=== PATIENT | female | born 1995 | race Caucasian/White ===

== ENCOUNTER 2018-12-09 10:28 | Emergency (ER) | payer OTHER ==
[2018-12-09 10:40] VITALS: RESP 18
[2018-12-09] MEDS ORDERED: SODIUM CHLORIDE 0.9% 500 ML 500 ML IV ONE (11:00)
--- NOTE | 2018-12-09 11:02 | ED ---
General Adult HPI - General Chief complaint: Vaginal Bleeding Stated complaint: Vaginal Bleeding-4 wks Time Seen by Provider: 12/09/18 10:41 Source: patient, RN notes reviewed Mode of arrival: ambulatory Limitations: no limitations - History of Present Illness Initial comments: Nikki is a 23-year-old female presenting for vaginal bleeding. Patient states that she had vaginal bleeding started last night. States it is spotting in nature. Patient states she believes she is about 8 weeks with an LMP around the end of September. States she had a positive test about one month ago. States she has had a miscarriage before and is concerned this could be happening again. Patient has not had an ultrasound and has not yet followed up with an [facility] [facility] [facility]. Patient is denying any abdominal pain whatsoever.Patient has no other complaints at this time including shortness of breath, chest pain, abdominal pain, nausea or vomiting, headache, or visual changes. - Related Data Home Medications Medication Instructions Recorded Confirmed Famotidine [Pepcid] 20 mg PO BID 02/02/16 02/02/16 Allergies Allergy/AdvReac Type Severity Reaction Status Date / Time No Known Allergies Allergy Verified 12/09/18 10:36 Review of Systems ROS Statement: Those systems with pertinent positive or pertinent negative responses have been documented in the HPI. ROS Other: All systems not noted in ROS Statement are negative. Past Medical History Past Medical History: No Reported History History of Any Multi-Drug Resistant Organisms: None Reported Past Surgical History: Tonsillectomy Additional Past Surgical History / Comment(s): back injections Past Psychological History: No Psychological Hx Reported Smoking Status: Never smoker Past Alcohol Use History: None Reported Past Drug Use History: None Reported - Past Family History Father Family Medical History: Diabetes Mellitus Additional Family Medical History / Comment(s): Dad has stroke. Maternal grandmother had a heart attack. General Exam Limitations: no limitations Course Vital Signs 12/09/18 12/09/18 10:36 11:30 Temperature 97.4 F L Pulse Rate 76 Respiratory 18 Rate Blood Pressure 115/71 114/73 O2 Sat by Pulse 100 Oximetry Medical Decision Making - Medical Decision Making 23-year-old female presents to the emergency determine for vaginal bleeding. Patient is currently 6-8 weeks . On exam no bleeding noted. Blood type is B+, no RhoGAM given. No tenderness. CBC unremarkable. Hemoglobin 10.6 which is chronic. CMP unremarkable. Urine does not show any evidence of infection. Gonorrhea Chlamydia and Trichomonas are pending. ultrasound shows a single live intrauterine with a sonographic age of 8 weeks and a heart rate of 165. There is a subchorionic implantation bleed noted that occupies less than 25% of the gestational sac diameter. Patient will have repeat hCG in 2 days. Patient will follow up with OB back in [place] where she lives. She will return here if she has any worsening symptoms. - Lab Data Result diagrams: 12/09/18 11:14 12/09/18 11:14 Lab Results 12/09/18 12/09/18 12/09/18 Range/Units 11:14 11:14 11:14 WBC 5.4 (3.8-10.6) k/uL RBC 4.33 (3.80-5.40) m/uL Hgb 10.6 L (11.4-16.0) gm/dL Hct 33.7 L (34.0-46.0) % MCV 77.7 L (80.0-100.0) fL MCH 24.5 L (25.0-35.0) pg MCHC 31.6 (31.0-37.0) g/dL RDW 17.0 H (11.5-15.5) % Plt Count 210 (150-450) k/uL Neutrophils % 56 % Lymphocytes % 36 % Monocytes % 4 % Eosinophils % 3 % Basophils % 1 % Neutrophils # 3.0 (1.3-7.7) k/uL Lymphocytes # 1.9 (1.0-4.8) k/uL Monocytes # 0.2 (0-1.0) k/uL Eosinophils # 0.1 (0-0.7) k/uL Basophils # 0.0 (0-0.2) k/uL Anisocytosis Slight Microcytosis Slight Sodium 140 (137-145) mmol/L Potassium 4.2 (3.5-5.1) mmol/L Chloride 107 (98-107) mmol/L Carbon Dioxide 20 L (22-30) mmol/L Anion Gap 13 mmol/L BUN 6 L (7-17) mg/dL Creatinine 0.55 (0.52-1.04) mg/dL Est GFR (CKD-EPI)AfAm >90 (>60 ml/min/1.73 sqM) Est GFR (CKD-EPI)NonAf >90 (>60 ml/min/1.73 sqM) Glucose 118 H (74-99) mg/dL Calcium 9.4 (8.4-10.2) mg/dL Total Bilirubin 0.3 (0.2-1.3) mg/dL AST 17 (14-36) U/L ALT 9 (9-52) U/L Alkaline Phosphatase 37 L (38-126) U/L Total Protein 7.0 (6.3-8.2) g/dL Albumin 4.0 (3.5-5.0) g/dL Urine Color Urine Appearance (Clear) Urine pH (5.0-8.0) Ur Specific Agenda (1.001-1.035) Urine Protein (Negative) Urine Glucose (UA) (Negative) Urine Ketones (Negative) Urine Blood (Negative) Urine Nitrite (Negative) Urine Bilirubin (Negative) Urine Urobilinogen (<2.0) mg/dL Ur Leukocyte Esterase (Negative) Blood Type B Positive Blood Type Recheck [facility] ONLY 12/09/18 Range/Units 11:16 WBC (3.8-10.6) k/uL RBC (3.80-5.40) m/uL Hgb (11.4-16.0) gm/dL Hct (34.0-46.0) % MCV (80.0-100.0) fL MCH (25.0-35.0) pg MCHC (31.0-37.0) g/dL RDW (11.5-15.5) % Plt Count (150-450) k/uL Neutrophils % % Lymphocytes % % Monocytes % % Eosinophils % % Basophils % % Neutrophils # (1.3-7.7) k/uL Lymphocytes # (1.0-4.8) k/uL Monocytes # (0-1.0) k/uL Eosinophils # (0-0.7) k/uL Basophils # (0-0.2) k/uL Anisocytosis Microcytosis Sodium (137-145) mmol/L Potassium (3.5-5.1) mmol/L Chloride (98-107) mmol/L Carbon Dioxide (22-30) mmol/L Anion Gap mmol/L BUN (7-17) mg/dL Creatinine (0.52-1.04) mg/dL Est GFR (CKD-EPI)AfAm (>60 ml/min/1.73 sqM) Est GFR (CKD-EPI)NonAf (>60 ml/min/1.73 sqM) Glucose (74-99) mg/dL Calcium (8.4-10.2) mg/dL Total Bilirubin (0.2-1.3) mg/dL AST (14-36) U/L ALT (9-52) U/L Alkaline Phosphatase (38-126) U/L Total Protein (6.3-8.2) g/dL Albumin (3.5-5.0) g/dL Urine Color Yellow Urine Appearance Clear (Clear) Urine pH 6.5 (5.0-8.0) Ur Specific Agenda 1.020 (1.001-1.035) Urine Protein Negative (Negative) Urine Glucose (UA) Negative (Negative) Urine Ketones Negative (Negative) Urine Blood Negative (Negative) Urine Nitrite Negative (Negative) Urine Bilirubin Negative (Negative) Urine Urobilinogen <2.0 (<2.0) mg/dL Ur Leukocyte Esterase Negative (Negative) Blood Type Blood Type Recheck Disposition Clinical Impression: Threatened miscarriage Disposition: HOME SELF-CARE Condition: Good Instructions (If sedation given, give patient instructions): Threatened Miscarriage (ED) Additional Instructions: Please follow up with [facility] and primary care as soon as possible. If you have any worsening symptoms return here to the emergency department. Is patient prescribed a controlled substance at d/c from ED?: No Referrals: Ana Tong MD [STAFF PHYSICIAN] - 1-2 days Time of Disposition: 12:29
[2018-12-09 11:36] LABS: ALT 9 U/L (9-52); AST 17 U/L (14-36); African American GFR (CKD) >90 (>60 ml/min/1.73 sqM); Alkaline Phosphatase 37 U/L (38-126); Anion Gap 13 mmol/L; Blood Urea Nitrogen 6 mg/dL (7-17); Calcium 9.4 mg/dL (8.4-10.2); Carbon Dioxide 20 mmol/L (22-30); Chloride 107 mmol/L (98-107); Glucose 118 mg/dL (74-99); Potassium 4.2 mmol/L (3.5-5.1); Sodium 140 mmol/L (137-145); Total Bilirubin 0.3 mg/dL (0.2-1.3)
[2018-12-09 11:44] LABS: Appearance,Urine Clear (Clear); Bilirubin,Urine Negative (Negative); Blood,Urine Negative (Negative); Color,Urine Yellow; Glucose,Urine (UA) Negative (Negative); Ketones,Urine Negative (Negative); Leukocyte Esterase,Urine Negative (Negative); Nitrite,Urine Negative (Negative); PH, Urine 6.5 (5.0-8.0); Protein,Urine Negative (Negative); Urobilinogen,Urine <2.0 mg/dL (<2.0)
[2018-12-09 11:52] LABS: Anisocytosis Slight; Basophils % (A) 1 %; Eosinophils # (A) 0.1 k/uL (0-0.7); Eosinophils % (A) 3 %; HCT 33.7 % (34.0-46.0); HGB 10.6 gm/dL (11.4-16.0); Lymphocytes # (A) 1.9 k/uL (1.0-4.8); Lymphocytes % (A) 36 %; MCH 24.5 pg (25.0-35.0); MCHC 31.6 g/dL (31.0-37.0); MCV 77.7 fL (80.0-100.0); Mean Platelet Volume 7.2; Microcytosis Slight; Monocytes # (A) 0.2 k/uL (0-1.0); Monocytes % (A) 4 %; Neutrophils % (A) 56 %; Platelet Count 210 k/uL (150-450); RBC 4.33 m/uL (3.80-5.40); WBC 5.4 k/uL (3.8-10.6)
--- NOTE | 2018-12-09 12:04 | US ---
EXAMINATION TYPE: Transabdominal DATE OF EXAM: 12/09/2018 11:49 AM COMPARISON: NONE CLINICAL HISTORY: pain. Spotting EXAM PERFORMED: Transabdominal (TA) EXAM MEASUREMENTS: GESTATIONAL AGE / DATING Physician Established: Not yet established Dates by LMP: LMP unknown Dates by First Scan: No previous this is first scan Dates by Current Scan for: (8 weeks/ 0 days) EDC: 07/21/2019 MATERNAL ANATOMY Uterus: 9.0 x 6.2 x 7.6 cm Right Ovary: 4.7 x 2.9 x 1.9 cm Left Ovary: 2.1 x 1.6 x 1.8 cm Post CDS / Adnexa: wnl Presence of free fluid: no Presence of corpus luteal cyst: no Presence of subchorionic bleed: Hypoechoic crescentic area surrounding the gestational sac measuring approximately 1.9 cm occupying less than 25% the gestational sac diameter. GESTATION / SURVEY CRL: 1.5cm (7 weeks/4 days) Yolk Sac (normal less than 6mm): 3 mm Heart Rate: 165 bpm Rhythm: Normal IUP: Live IUP Beta HcG (if available): Not available at this time IMPRESSION: Single live intrauterine with a sonographic age of 8 weeks and 0 days and estimated date of delivery of 07/21/2019 and heart rate of 165 bpm. There is a subchorionic implantation bleed noted th at occupies less than 25% the gestational sac diameter.
[2018-12-09 12:50] VITALS: BP 115/73; PULSE 66; TEMP 98.7
[2018-12-10 16:17] LABS: N. gonorrhoeae,PCR Positive (Neg,Equiv); Neisseria Source Vagina
[2018-12-10 16:20] LABS: C. trachomatis,PCR Negative (Neg,Equiv); Chlamydia trachomatis Source Vagina
== END 2018-12-09 12:50 | disposition home or self-care (01) ==
LOC: EC 10:28
DX: O20.0 Threatened abortion (principal); Z67.20 Type B blood, Rh positive; Z87.59 Personal history of other complications of pregnancy, childbirth and the puerperium; Z3A.08 8 weeks gestation of pregnancy
CPT/HCPCS: 36415; 76801; 80053; 81003; 84702; 85025; 86900; 86901; 87491; 87591; 87808; 99284